=== PATIENT | female | born 2000 | race Caucasian/White ===

== ENCOUNTER 2020-10-08 07:54 | Emergency (ER) | payer OTHER ==
[2020-10-08 08:48] LABS: ABSOLUTE EOSINOPHILS # (AUTO) 0.1 10^3/uL (0.0-0.6); ABSOLUTE LYMPHOCYTES (AUTO) 2.6 10^3/uL (0.5-4.7); ABSOLUTE MONOCYTES (AUTO) 1.2 10^3/uL (0.1-1.4); ABSOLUTE NEUT (AUTO) 6.3 10^3/uL (1.7-8.2); BASOPHILS % (AUTO) 0.2 % (0-2); EOSINOPHILS % (AUTO) 1.1 % (0-6); HEMATOCRIT 33.1 % (36.0-47.0); HEMOGLOBIN 11.1 g/dL (12.0-15.5); LYMPHOCYTES % (AUTO) 25.6 % (13-45); MEAN CORPUSCULAR HEMOGLOBIN 26.5 pg (27.0-33.4); MEAN CORPUSCULAR HGB CONC 33.6 g/dL (32.0-36.0); MEAN CORPUSCULAR VOLUME 79 fl (80-97); MONOCYTES % (AUTO) 12.1 % (3-13); PLATELET COUNT 319 10^3/uL (150-450); RED CELL DISTRIBUTION WIDTH 15.8 % (11.5-14.0); TOTAL CELLS COUNTED % (AUTO) 100 %; WHITE BLOOD COUNT 10.3 10^3/uL (4.0-10.5)
[2020-10-08 09:08] LABS: ALBUMIN 3.4 g/dL (3.5-5.0); ALKALINE PHOSPHATASE 84 U/L (38-126); ANION GAP 8 (5-19); APPEARANCE,URINE SLIGHTLY-CLOUDY; ASPARTATE AMINO TRANSFERASE 21 U/L (14-36); BILIRUBIN,DIRECT 0.1 mg/dL (0.0-0.4); BILIRUBIN,TOTAL 0.2 mg/dL (0.2-1.3); BILIRUBIN,URINE NEGATIVE (NEGATIVE); BLOOD UREA NITROGEN 13 mg/dL (7-20); CALCIUM 8.8 mg/dL (8.4-10.2); CARBON DIOXIDE 19 mmol/L (22-30); CHLORIDE 108 mmol/L (98-107); COLOR,URINE YELLOW; CREATINE KINASE 48 U/L (30-135); GLUCOSE 89 mg/dL (75-110); GLUCOSE, URINE NEGATIVE (NEGATIVE); KETONES,URINE NEGATIVE (NEGATIVE); LEUKOCYTE ESTERASE,URINE MODERATE (NEGATIVE); NITRITE,URINE NEGATIVE (NEGATIVE); POTASSIUM 4.4 mmol/L (3.6-5.0); PROTEIN,URINE 30 mg/dL (NEGATIVE); TOTAL PROTEIN 6.2 g/dL (6.3-8.2); URINE SPECIFIC GRAVITY 1.026; UROBILINOGEN,URINE NEGATIVE mg/dL (<2.0)
--- NOTE | 2020-10-08 09:09 | ER Document Report ---
ED General - General Chief Complaint: Dizziness Stated Complaint: ELEVATED HEARTRATE Time Seen by Provider: 10/08/20 08:43 - HPI Notes: Chief complaint: at 34 weeks now experiencing rapid heart rate and gen eralized weakness History of present illness: This is a generally healthy 20-year-old female 2 para 1 currently at 34 weeks EGA being followed by the outpatient OB clinic at [facility] now presenting for relatively sudden onset of generalized weakness and tachycardia. Patient felt slightly presyncopal but did not lose consciousness. She denies any pain. She denies cough or fever. She denies vomiting or dysuria. She is having some irregular contractions once or twice an hour. No vaginal discharge or vaginal bleeding. She denies any known history of thromboembolic disease. No chest pain. 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 She had eaten a protein bar for breakfast this morning and came in to do her usual morning blood draws. During this time she became very dizzy with onset of symptoms as noted above. She feels slightly better now that she is lying down in the emergency department. - Related Data Allergies/Adverse Reactions: No Known Allergies Allergy (Verified 10/08/20 08:00) Past Medical History - General Information source: Patient, [facility] Records - Social History Smoking Status: Never Smoker Frequency of alcohol use: None Drug Abuse: None Lives with: Family Family History: Reviewed & Not Pertinent - Past Medical History Cardiac Medical History: Reports: None Denies: Hx DVT, Hx Pulmonary Embolism Pulmonary Medical History: Reports: None Endocrine Medical History: Denies: Hx Diabetes Mellitus Type 1, Hx Diabetes Mellitus Type 2 Malignancy Medical History: Reports: None Past Surgical History: Reports: Hx Abdominal Surgery - exploratory, Hx Gynecologic Surgery - cyst Review of Systems - Review of Systems Notes: Constitutional: Negative for fever. HENT: Negative for sore throat. Eyes: Negative for visual changes. Cardiovascular: As per HPI. Respiratory: Negative for shortness of breath. Gastrointestinal: Negative for abdominal pain, vomiting or diarrhea. Genitourinary: Negative for dysuria. Musculoskeletal: Negative for back pain. Skin: Negative for rash. Neurological: As per HPI. 10 point ROS negative except as marked above and in HPI. Physical Exam - Vital signs Vitals: Temp Pulse Resp BP Pulse Ox 97.9 F 106 H 18 106/63 96 10/08/20 07:59 10/08/20 07:59 10/08/20 07:59 10/08/20 07:59 10/08/20 07:59 - Notes Notes: GENERAL: Gravid female of approximately stated age currently appearing in no acute distress. SKIN: Good turgor no rashes. HEAD: Normocephalic atraumatic. EYES: PERRLA. EOMI. Conjunctivae and sclerae clear. EARS: CANALS AND TMS CLEAR. NOSE: CLEAR. MOUTH: Moist mucosa. Good dentition. No stridor or edema. No drooling. NECK: Supple. No masses or thyromegaly. No adenopathy. Carotids 2+ without bruits. No JVD. BACK: Symmetrical without tenderness. CHEST: Respirations unlabored. Breath sounds clear and symmetrical. HEART: Regular rhythm. No murmur gallop or rub. ABDOMEN: Gravid uterus consistent with dates. There is palpable movement. FHT 155 by Doppler. Soft nontender without masses, hepatosplenomegaly or rebou nd. Bowel sounds normally active. No bruits. GENITALIA: Deferred. EXTREMITIES: Trace bilateral pretibial edema. No calf tenderness. Cap refill less than 1.5 seconds. Dorsalis pedis and posterior tibial pulses 3+ and symmetrical. NEUROLOGICAL: GCS 15. Alert and oriented x3. Normal gait. Fluent speech. Cranial nerves II through XII intact. Sensorimotor and cerebellar normal. Normal tone. PSYCHIATRIC: Appropriate affect. Course - Re-evaluation Re-evalutation: 10/08/20 11:05 This is a 20-year-old female currently at 34 weeks EGA who presented with weakness and tachycardia of sudden onset. Mildly anemic with a hemoglobin 11.1 g. Good heart tones. No evidence of any active labor. Oxygenation normal. EKG remarkable only for sinus tachycardia. Chemistry profile unremarkable. We obtained a CTA of the chest to rule out pulmonary embolus and this was read as negative for PE by the radiologist. Follow-up evaluation this time shows patient has a pulse rate of 68 Wilcox rate 16 and blood pressure of 105/60. She appears stable for outpatient follow-up in OB clinic at [facility]. I will provide her a work note for 3 days. Suggest she increase oral fluids. - Vital Signs Vital signs: Temp Pulse Resp BP Pulse Ox 97.9 F 106 H 13 92/73 L 98 01/26/21 07:59 10/08/20 07:59 10/08/20 09:01 10/08/20 09:00 10/08/20 09:01 - Laboratory Results Result Diagrams: 10/08/20 08:23 10/08/20 08:23 Laboratory Results Interpreted: 10/08/20 10/08/20 10/08/20 08:23 08:23 08:23 Hgb 11.1 L Hct 33.1 L MCV 79 L MCH 26.5 L RDW 15.8 H Sodium 135.4 L Chloride 108 H Carbon Dioxide 19 L Creatinine 0.43 L Total Protein 6.2 L Albumin 3.4 L Urine Protein 30 H Ur Leukocyte Esterase MODERATE H Critical Laboratory Results Reviewed: Yes Attending or Supervising Physician who Reviewed Labs: MAXIMINO ELENA - Radiology Results Radiology Results Interpreted: 10/08/20 11:05 Chest/Abdomen CTA 10/08/20 09:15 IMPRESSION: NORMAL CTA OF THE CHEST. NO PULMONARY EMBOLI. Critical Radiology Results Reviewed: No Critical Results - EKG Interpretation by Me Additional EKG results interpreted by me: 10/08/20 09:12 Twelve-lead EKG reviewed by me contemporaneously: 0840 hrs. Indication for study: Tachycardia/weakness Rhythm: Normal sinus Rate: 99 Intervals: Normal intervals QRS axis: +[address]/T wave changes: None Comparison with prior tracing: None Interpretation: Normal sinus rhythm Discharge - Discharge Clinical Impression: Pre-syncope, IUP 34 weeks EGA Condition: Stable Disposition: HOME, SELF-CARE Additional Instructions: Return here as needed for new or worsening symptoms. Increase oral fluids. You have been provided a doctor's note for work for the next 3 days. Contact your OB clinic/physician today to arrange follow-up within the next several days.
[2020-10-08 09:23] LABS: TROPONIN I < 0.012 ng/mL
--- NOTE | 2020-10-08 09:32 | EKG REPORT ---
SEVERITY:- BORDERLINE ECG - SINUS RHYTHM : Confirmed by: Bart Silverio MD 08-Oct-2020 09:31:26
--- NOTE | 2020-10-08 10:33 | RADIOLOGY REPORT (SQ) ---
EXAM DESCRIPTION: CTA CHEST IMAGES COMPLETED DATE/TIME: 10/08/2020 10:17 am REASON FOR STUDY: Tachycardia, presyncope, EGA 34 weeks COMPARISON: None. TECHNIQUE: CT scan of the chest performed using helical scanning technique with dynamic intravenous contrast injection. Images reviewed with lung, soft tissue and bone windows. Reconstructed coronal and sagittal MPR images reviewed. Additional 3 dimensional post-processing performed to develop Maximal Intensity Projection images (OR P). All images stored on PACS. All CT scanners at this facility use dose modulation, iterative reconstruction, and/or weight based d osing when appropriate to reduce radiation dose to as low as reasonably achievable (ALARA). [facility]: Dose Right [facility]: CareDose [facility]: Dose Right [facility]: Teradose 4D [facility]: PingTune CONTRAST TYPE AND DOSE: contrast/concentration: Isovue 350.00 mmol/ml; Total Contrast Delivered: 61. 0 ml; Total Saline Delivered: 55.4 ml Contrast bolus adequate for pulmonary arteries and aorta. RENAL FUNCTION: BUN 13 creatinine 0.43. RADIATION DOSE: CT Rad equipment meets quality standard of care and radiation dose reduction techniq ues were employed. CTDIvol: 9.9 - 17.9 mGy. DLP: 512 mGy-cm. . LIMITATIONS: None. FINDINGS: LUNGS AND PLEURA: No masses, infiltrates, or pneumothorax. No pleural effusions or pleura l calcifications. AORTA AND GREAT VESSELS: No aneurysm. No dissection. HEART: No pericardial effusion. No significant coronary artery calcifications. PULMONARY ARTERIES: No emboli visualized in the main pulmonary arteries or the segmental branches. HILAR AND MEDIASTINAL STRUCTURES: No identified masses or abnormal nodes. HARDWARE: None in the chest. UPPER ABDOMEN: No significant findings. Limited exam. THYROID AND OTHER SOFT TISSUES: No masses. No adenopathy. BONES: No acute or significant finding. 3D MIPS: Confirm above findings. OTHER: No other significant finding. IMPRESSION: NORMAL CTA OF THE CHEST. NO PULMONARY EMBOLI. COMMENT: Quality ID # [id number]: Final reports with documentation of one or more dose reduction techniques (e.g., Automated exposure control, adjustment of the mA and/or kV according to patient size, use of iterative reconstruction technique) TECHNICAL DOCUMENTATION: JOB ID: [id number] 2010 [employer]- All Rights Reserved Reading location - IP/workstation name: [email or web address]
[2020-10-08 11:40] VITALS: BP 96/63
== END 2020-10-08 11:44 | disposition home or self-care (01) ==
LOC: ER 07:54
DX: O26.893 Other specified pregnancy related conditions, third trimester (principal); R55 Syncope and collapse; R53.1 Weakness; R00.0 Tachycardia, unspecified; O99.013 Anemia complicating pregnancy, third trimester; D64.9 Anemia, unspecified; O12.03 Gestational edema, third trimester; Z3A.34 34 weeks gestation of pregnancy
CPT/HCPCS: 36415; 71275; 80053; 81001; 82550; 82553; 82962; 84484; 85025; 93005; 93010; 99285